=== PATIENT | male | born 2000 | race African-American/Black ===

== ENCOUNTER 2020-11-16 14:12 | Emergency (ER) | payer OTHER ==
[~2020-11-16] VITALS: Ht 170.2 cm; Wt 75.3 kg
[2020-11-16] MEDS ORDERED: NAPR-849 PO (14:20)
[2020-11-16 16:29] VITALS: BP 132/78
== END 2020-11-16 16:31 | disposition home or self-care (01) ==
LOC: M ED 14:12
DX: G89.29 Other chronic pain (principal); M25.531 Pain in right wrist